=== PATIENT | female | born 1950 | race Two or more races ===

== ENCOUNTER 2017-07-05 08:19 | Inpatient (IN) | payer MEDICARE, OTHER ==
[~2017-07-05] VITALS: Ht 160 cm; Wt 104.6 kg
[~2017-07-05 08:19] MED LIST: DIGOPOW2; GLUCOSAMINE; INSUPOW; METFORMIN; SPIROLACTONE
[2017-07-05 09:21] LABS: Basophils # (auto) 0.1 uL; Basophils % (auto) 1.4 % (0.0-2.0); CONDITION Y; Eosinophils # (auto) 0.2 uL; Eosinophils % (auto) 2.1 % (0.0-7.0); Hematocrit 42.3 % (36.0-46.0); Hemoglobin 14.4 g/dL (12.2-16.2); Lymphocytes # (auto) 2.3 uL; Lymphocytes % (auto) 30.5 % (10.0-50.0); Mean Corpuscular Hemoglobin 31.5 pg (28.0-32.0); Mean Corpuscular Hgb Conc. 34.2 g/dL (32.0-36.0); Mean Corpuscular Volume 92.3 fL (80.0-100.0); Monocytes # (auto) 0.7 uL; Monocytes % (auto) 9.2 % (0.0-12.0); Neutrophils # (auto) 4.2 uL; Neutrophils % (auto) 56.8 % (37.0-80.0); Platelet Count (auto) 213 10^3/uL (140-450); Red Cell Distribution Width 13.4 % (11.6-16.0); White Blood Cell 7.5 10^3/uL (4.4-10.8)
[2017-07-05] MEDS ORDERED: SODIUM CHLORIDE 0.9% 1,000 ML IV ONE (09:39)
[2017-07-05 09:41] LABS: Alkaline Phosphatase 84 U/L (45-117); Anion Gap 10 (5-15); Aspartate Aminotransferase 52 U/L (15-37); BUN/Creatinine Ratio 20.7; Bilirubin, Total 0.5 mg/dL (0.2-1.0); Blood Urea Nitrogen 12 mg/dL (7-18); Calcium 8.7 mg/dL (8.5-10.1); Carbon Dioxide 22 mmol/L (21-32); Chloride 108 mmol/L (98-107); GFR African American 133 mL/min; GFR Non-African American 110 mL/min; Glucose 147 mg/dL (74-106); Magnesium 2.1 mg/dL (1.6-2.6); Potassium 3.4 mmol/L (3.5-5.1); Sodium 140 mmol/L (136-145)
[2017-07-05 09:44] LABS: B-Type Natriuretic Peptide 379.09 pg/mL (0-100)
[2017-07-05] MEDS ORDERED: FUROSEMIDE 40 MG/4 ML VIAL IV ONE (09:45)
[2017-07-05 09:49] LABS: Temperature: 23.9 C (20.0-25.0)
[2017-07-05 10:52] LABS: INR 1.01 (0.9-1.15); Partial Thromboplastin Time 26.4 sec (22.64-33.71)
[2017-07-05] MEDS ORDERED: cefTRIAXone 1GM/50ML D5W 50 ML IV ONE (13:30)
[2017-07-05] MEDS ORDERED: TEMAZEPAM 15 MG CAP PO PRN (13:30)
[2017-07-05] MEDS ORDERED: HYDROcodone-ACET 5/325MG TAB PO PRN (13:30)
[2017-07-05] MEDS ORDERED: DOCUSATE SOD 100 MG CAP PO PRN (13:30)
[2017-07-05] MEDS ORDERED: ONDANSETRON HCL 4 MG/2 ML VIAL IV PRN (13:30)
[2017-07-05] MEDS ORDERED: MORPHINE SULF INJ 2 MG/ML SYRINGE 1ML IV PRN ×2 (13:30)
[2017-07-05] MEDS ORDERED: ACETAMINOPHEN 325 MG TAB PO PRN (13:30)
[2017-07-05] MEDS ORDERED: NITROGLYCERIN 0.4 MG SL TAB SL PRN (13:30)
[2017-07-05] MEDS ORDERED: cloNIDine HCL 0.1 MG TAB PO PRN (13:30)
[2017-07-05] MEDS ORDERED: DEXTROSE (50%) 50ML SYRG IV PRN (13:30)
[2017-07-05] MEDS ORDERED: ASPirin-EC 81 mg tab PO ONE (13:45)
[2017-07-05] MEDS: IPRATROPIUM BROM 0.5 MG/2.5ML INH SOL NEB SCH ×3 (14:15→22:19)
[2017-07-05] MEDS: ALBUTEROL SULF 2.5 MG/0.5ML(0.5%) NEB SOLN NEB SCH ×3 (14:16→22:19)
[2017-07-05] MEDS: amLODIPine BESYLATE 5 MG TAB PO SCH (15:08)
[2017-07-05] MEDS: POTASSIUM CHL 10 Meq TABLET PO SCH ×2 (15:08→21:58)
[2017-07-05] MEDS: SODIUM CHLOR 0.9% PF (SALINE LOCK) 10ML VIAL IV SCH ×2 (15:09→21:57)
[2017-07-05] MEDS: ENOXAPARIN SOD 40 MG/0.4 ML SYRINGE SC SCH (15:09)
[2017-07-05 15:28] VITALS: BP 139/94
[2017-07-05] MEDS ORDERED: [UNRECOGNIZED DRUG - CODE] (15:54)
[2017-07-05] MEDS: InsuLIN REG 1unit/0.01ml Soln (100units/ml) SC SCH ×2 (17:00→22:06)
[2017-07-05] MEDS: ACCU-CHEK COMFORT CURVE STRIP VI SCH ×2 (17:20→21:58)
[2017-07-05] MEDS: Boost Glucose Control 8 Ounces PO SCH ×2 (18:12→21:58)
[2017-07-05] MEDS: FUROSEMIDE 20 MG/2 ML VIAL IV SCH (18:51)
[2017-07-05] MEDS: FAMOTIDINE 20 MG TAB PO SCH (21:58)
[2017-07-05] MEDS: ATORVASTATIN 20 MG TAB PO SCH (21:58)
[2017-07-05 22:00] VITALS: BP 123/68
[2017-07-06] VITALS (7 sets, daily range): BP systolic 118–143; BP diastolic 53–81
[2017-07-06] MEDS: ALBUTEROL SULF 2.5 MG/0.5ML(0.5%) NEB SOLN NEB SCH ×6 (02:19→22:01)
[2017-07-06] MEDS: IPRATROPIUM BROM 0.5 MG/2.5ML INH SOL NEB SCH ×7 (02:19→22:01)
[2017-07-06] MEDS: Boost Glucose Control 8 Ounces PO SCH ×4 (06:03→22:00)
[2017-07-06] MEDS: SODIUM CHLOR 0.9% PF (SALINE LOCK) 10ML VIAL IV SCH ×3 (06:03→22:02)
[2017-07-06] MEDS: ACCU-CHEK COMFORT CURVE STRIP VI SCH ×4 (06:05→22:05)
[2017-07-06] MEDS: FUROSEMIDE 20 MG/2 ML VIAL IV SCH ×2 (06:06→17:36)
[2017-07-06] MEDS: InsuLIN REG 1unit/0.01ml Soln (100units/ml) SC SCH ×4 (06:20→22:00)
[2017-07-06] MEDS: INSULIN DETEMIR(LEVEMIR) 1unit/0.01ml Soln (100units/ml) SC SCH (06:21)
[2017-07-06 06:31] LABS: Basophils # (auto) 0 uL; Basophils % (auto) 0.4 % (0.0-2.0); CONDITION Y; Eosinophils # (auto) 0.2 uL; Eosinophils % (auto) 2.3 % (0.0-7.0); Hematocrit 43.3 % (36.0-46.0); Hemoglobin 14.7 g/dL (12.2-16.2); Lymphocytes # (auto) 2.5 uL; Lymphocytes % (auto) 30.9 % (10.0-50.0); Mean Corpuscular Hemoglobin 31.6 pg (28.0-32.0); Mean Platelet Volume 8.6 fL (7.4-10.4); Monocytes # (auto) 0.9 uL; Monocytes % (auto) 11.2 % (0.0-12.0); Neutrophils # (auto) 4.4 uL; Neutrophils % (auto) 55.2 % (37.0-80.0); Platelet Count (auto) 227 10^3/uL (140-450); Red Cell Distribution Width 13.8 % (11.6-16.0)
[2017-07-06 06:47] LABS: Bilirubin, Total 0.7 mg/dL (0.2-1.0); Calcium 8.7 mg/dL (8.5-10.1); Potassium 3.4 mmol/L (3.5-5.1); Total Protein 7.2 g/dL (6.4-8.2)
[2017-07-06 08:08] LABS: Urine Bilirubin Negative (Negative); Urine Blood Negative /uL (Negative); Urine Color Colorless (Yellow); Urine Glucose Normal (Normal); Urine Ketone Negative (Negative); Urine Nitrite Negative (Negative); Urine RBC <1 /hpf (0 - 4); Urine Squamous Epithelial Cell FEW /hpf (<5); Urine Urobilinogen Normal (Negative); Urine pH 6.5 (5.0-8.0)
[2017-07-06] MEDS ORDERED: cefTRIAXone 1GM/50ML D5W 50 ML IV SCH (09:00)
[2017-07-06] MEDS: ENOXAPARIN SOD 40 MG/0.4 ML SYRINGE SC SCH (09:34)
[2017-07-06] MEDS: FAMOTIDINE 20 MG TAB PO SCH ×2 (09:34→22:04)
[2017-07-06] MEDS: SPIRONOLACTONE 25 MG TAB PO SCH (09:35)
[2017-07-06] MEDS: POTASSIUM CHL 10 Meq TABLET PO SCH ×2 (09:35→22:03)
[2017-07-06] MEDS: amLODIPine BESYLATE 5 MG TAB PO SCH (09:37)
[2017-07-06] MEDS: ASPirin-EC 81 mg tab PO SCH (09:38)
[2017-07-06] MEDS: ATORVASTATIN 20 MG TAB PO SCH (22:03)
[2017-07-06] MEDS: METOPROLOL TARTRATE 25 MG TAB PO SCH (22:04)
[2017-07-07] MEDS: ALBUTEROL SULF 2.5 MG/0.5ML(0.5%) NEB SOLN NEB SCH ×3 (02:13→10:38)
[2017-07-07] MEDS: IPRATROPIUM BROM 0.5 MG/2.5ML INH SOL NEB SCH ×3 (02:13→10:38)
[2017-07-07 04:52] VITALS: BP 126/73
[2017-07-07] MEDS: FUROSEMIDE 20 MG/2 ML VIAL IV SCH (05:57)
[2017-07-07 06:00] LABS: BUN/Creatinine Ratio 19.4; Calcium 9.1 mg/dL (8.5-10.1); Potassium 3.9 mmol/L (3.5-5.1)
[2017-07-07] MEDS: Boost Glucose Control 8 Ounces PO SCH ×2 (06:00→12:32)
[2017-07-07] MEDS: SODIUM CHLOR 0.9% PF (SALINE LOCK) 10ML VIAL IV SCH ×2 (06:06→12:37)
[2017-07-07] MEDS: INSULIN DETEMIR(LEVEMIR) 1unit/0.01ml Soln (100units/ml) SC SCH (06:53)
[2017-07-07] MEDS: ACCU-CHEK COMFORT CURVE STRIP VI SCH ×2 (06:54→12:37)
[2017-07-07] MEDS: InsuLIN REG 1unit/0.01ml Soln (100units/ml) SC SCH ×2 (06:54→12:37)
[2017-07-07 08:29] VITALS: BP 131/78
[2017-07-07 09:00] VITALS: BP 131/78
[2017-07-07] MEDS: POTASSIUM CHL 10 Meq TABLET PO SCH (09:20)
[2017-07-07] MEDS: METOPROLOL TARTRATE 25 MG TAB PO SCH (09:20)
[2017-07-07] MEDS: SPIRONOLACTONE 25 MG TAB PO SCH (09:20)
[2017-07-07] MEDS: ASPirin-EC 81 mg tab PO SCH (09:20)
[2017-07-07] MEDS: FAMOTIDINE 20 MG TAB PO SCH (09:21)
[2017-07-07] MEDS: ENOXAPARIN SOD 40 MG/0.4 ML SYRINGE SC SCH (09:21)
[2017-07-07] MEDS ORDERED: DIGOXIN 0.125 MG TAB PO ONE (10:45)
[2017-07-07] MEDS ORDERED: ENALAPRIL MALEATE 2.5 MG TAB PO SCH (11:00)
[2017-07-07 13:00] VITALS: BP 128/92
[2017-07-07] MEDS ORDERED: ENA2.5T PO (13:59)
[2017-07-07] MEDS ORDERED: DIG0125T PO (13:59)
[2017-07-07] MEDS ORDERED: ASP81EC PO (13:59)
[2017-07-07] MEDS ORDERED: CAR3125T PO (13:59)
[2017-07-07] MEDS ORDERED: SPIR25TA88 PO (14:05)
[2017-07-07 14:19] VITALS: BP 128/92
[2017-07-07] MEDS ORDERED: CARVEDILOL 3.125 MG TAB PO SCH (22:00)
[2017-07-08] MEDS ORDERED: DIGOXIN 0.125 MG TAB PO SCH (10:00)
== END 2017-07-07 14:41 | disposition home or self-care (01) | DRG 292 ==
LOC: ER 08:19 → TELE 08:20 → TELE-E-ADS 15:30 → TELE-EAST 18:12
PROVIDERS: ADMIT Internal Medicine; ATTEND Internal Medicine
DX: I11.0 Hypertensive heart disease with heart failure (principal); E44.0 Moderate protein-calorie malnutrition; Z68.41 Body mass index [BMI] 40.0-44.9, adult; I42.9 Cardiomyopathy, unspecified; E66.01 Morbid (severe) obesity due to excess calories; J45.901 Unspecified asthma with (acute) exacerbation; I50.43 Acute on chronic combined systolic (congestive) and diastolic (congestive) heart failure; E11.9 Type 2 diabetes mellitus without complications; E87.6 Hypokalemia; J40 Bronchitis, not specified as acute or chronic; Z90.49 Acquired absence of other specified parts of digestive tract; Z88.8 Allergy status to other drugs, medicaments and biological substances; Z90.710 Acquired absence of both cervix and uterus
CPT/HCPCS: 36415; 71010; 80048; 80053; 80162; 81001; 82962; 83036; 83735; 83880; 84443; 84484; 85025; 85379; 85610; 85730; 87086; 93005; 93306; 94640; 94761; J0696; J1815